=== PATIENT | female | born 1945 | race Two or more races ===

== ENCOUNTER 2020-07-01 12:32 | Emergency (ER) | payer MEDICARE, OTHER ==
[~2020-07-01] VITALS: Ht 129.5 cm; Wt 74.8 kg
[2020-07-01 12:58] VITALS: BP 140/95
[2020-07-01 14:25] LABS: Urine Bacteria NONE SEEN /hpf (None Seen); Urine Blood 3+ /uL (Negative); Urine Hyaline Cast MOD /lpf (0 - 2); Urine Mucus MODERATE (None Seen); Urine Specific Gravity 1.025 (1.001-1.035); Urine WBC 159 /hpf (0 - 5)
== END 2020-07-01 15:43 | disposition home or self-care (01) ==
LOC: EDBD 12:32 → ER 12:32
DX: U07.1 COVID-19 (principal); N39.0 Urinary tract infection, site not specified; E78.5 Hyperlipidemia, unspecified; I10 Essential (primary) hypertension; Z90.710 Acquired absence of both cervix and uterus
CPT/HCPCS: 81001